=== PATIENT | female | born 1955 | race Caucasian/White ===

== ENCOUNTER → 2018-09-03 22:05 | Outpatient (CLI) | payer MEDICARE | END | disposition home or self-care (01) | LOC: D.MAMMO 07-13 08:00 | PROVIDERS: ATTEND Family Medicine | DX: N63.42 Unspecified lump in left breast, subareolar (principal) ==

== ENCOUNTER 2019-12-30 21:12 | Inpatient (IN) | payer MEDICARE ==
[~2019-12-30] VITALS: Ht 162.6 cm; Wt 53.1 kg
[2019-12-30] MEDS ORDERED: LIPITOR40 MG PO (21:31)
[2019-12-30] MEDS ORDERED: NORVASC10 MG PO (21:31)
[2019-12-30] MEDS ORDERED: TESSALON PERLE100 MG PO (21:31)
[2019-12-30] MEDS ORDERED: BAYER CHEWABLE81 MG PO (21:31)
[2019-12-30] MEDS ORDERED: HUMALOG 30100 UNITS/ SC (21:32)
[2019-12-30] MEDS ORDERED: PLAVIX75 MG PO (21:32)
[2019-12-30] MEDS ORDERED: GABAPENTIN100 MG PO (21:32)
[2019-12-30] MEDS ORDERED: ZOLOFT50 MG PO (21:33)
[2019-12-30] MEDS ORDERED: SINGULAIR10 MG PO (21:33)
[2019-12-30] MEDS ORDERED: LOPRESSOR25 MG PO (21:33)
[2019-12-30] MEDS ORDERED: ISOSORBIDE MONO60 M1 PO (21:33)
[2019-12-30] MEDS ORDERED: ULTRAM50 MG PO (21:34)
[2019-12-30 22:05] LABS: INR 1.07 (0.85-1.17); PROTIME 13.8 SECONDS (11.6-15.0)
[2019-12-30 22:06] LABS: APTT 57.5 SECONDS (22.8-39.4)
[2019-12-30 22:08] LABS: CALC OSMOLALITY 271 mosm/kg (275-300); CALCIUM 7.7 mg/dL (8.5-10.1); CARBON DIOXIDE 19.5 mmol/L (21.0-32.0); CREATININE - SERUM 1.3 mg/dL (0.6-1.3); GLUCOSE 211 mg/dL (74-106); SODIUM 131 mmol/L (136-145); UREA NITROGEN 20 mg/dL (7-18); eGFR NON AFRICAN AMERICAN 44 mL/min (90-120)
[2019-12-30 22:15] LABS: BASOPHILS 0.1 % (0-2); EOSINOPHILS 0 % (0-7); HEMATOCRIT 31.1 % (36.0-48.0); HEMOGLOBIN 10.4 g/dL (12-16); IMMATURE GRANULOCYTES 0.4 % (0-5); MCHC 33.4 g/dL (31.0-37.0); MCV 80.8 fL (80.0-100.0); MEAN PLATELET VOLUME 9.8 fL (7.4-10.4); MONOCYTES 10.6 % (2-11); NEUTROPHILS 75.9 % (40-80); PLATELET COUNT 212 10x3/uL (130-400); RBC 3.85 10x6/uL (4.00-5.40); RDW 14.8 % (11.5-14.5); WBC 11.3 10x3/uL (4.8-10.8)
[2019-12-30 22:25] LABS: ALBUMIN 2.3 g/dL (3.4-5.0); ALKALINE PHOSPHATASE 104 U/L (30-120); ALT (SGPT) 12 U/L (10-68); BILIRUBIN - TOTAL 0.79 mg/dL (0.2-1.3); CKMB 0.5 U/L (0.0-3.6); CREATINE KINASE 78 UL (21-215); TROPONIN-I 0.049 ng/mL (0.000-0.060)
[2019-12-30 22:30] VITALS: BP 174/88
[2019-12-30 22:44] LABS: CHLORIDE - SERUM 98 mmol/L (98-107)
[2019-12-30 23:10] LABS: AMORPHOUS SEDIMENT >1+ /lpf (NONE SEEN); BILIRUBIN NEGATIVE (NEGATIVE); GLUCOSE 100 mg/dL (NEGATIVE); KETONE SMALL mg/dL (NEGATIVE); NITRITE NEGATIVE (NEGATIVE); UROBILINOGEN NORMAL (NORMAL); WHITE CELLS - URINE 0-5 /hpf (NEGATIVE)
[2019-12-31] MEDS ORDERED: LEVEMIR IN100 UNITS/ SC (02:01)
[2019-12-31] MEDS ORDERED: NITROSTAT0.4 MG SL (02:10)
[2019-12-31] MEDS ORDERED: PROTONIX40 MG PO (02:11)
[2019-12-31] MEDS ORDERED: ZOLOFT100 MG PO (02:14)
[2019-12-31] MEDS ORDERED: CEFUROXIME250 MG PO (02:17)
[2019-12-31] MEDS ORDERED: FLUTICASONE INH (02:20)
[2019-12-31 03:33] VITALS: BP 174/87; BMI 20.1
[2019-12-31 07:26] LABS: BASOPHILS 0.1 % (0-2); EOSINOPHILS 0.1 % (0-7); HEMATOCRIT 32.7 % (36.0-48.0); HEMOGLOBIN 10.8 g/dL (12-16); IMMATURE GRANULOCYTES 0.4 % (0-5); LYMPHOCYTES 9.2 % (15-50); MCH 26.7 pg (26.0-34.0); MCV 80.7 fL (80.0-100.0); MEAN PLATELET VOLUME 10.8 fL (7.4-10.4); MONOCYTES 10.1 % (2-11); NEUTROPHILS 80.1 % (40-80); PLATELET COUNT 223 10x3/uL (130-400); RBC 4.05 10x6/uL (4.00-5.40); RDW 14.9 % (11.5-14.5); WBC 10.7 10x3/uL (4.8-10.8)
[2019-12-31 08:32] LABS: ANION GAP 17.7 mmol/L (8-16); CALCIUM 7.7 mg/dL (8.5-10.1); CARBON DIOXIDE 20.7 mmol/L (21.0-32.0); CREATININE - SERUM 1.1 mg/dL (0.6-1.3); POTASSIUM - SERUM 4.4 mmol/L (3.5-5.1)
[2019-12-31 10:10] VITALS: BP 176/84
--- NOTE | 2019-12-31 10:30 | NUR ---
PT ALERT AND ORIENTED UPON ENTERING, ADMINISTERED MEDICATION, NO DIFFICULTIES. FAMILY AT [facility]. GAVE 8 UNITS INSULIN PER SLIDING SCALE FOR SUGAR OF 203. ASSESSMENT PERFORMED. NOTED THAT PT IS VERY SOB EVEN WHEN SITTING IN BED. DENIES ANY NEEDS. BED IN LOWEST POSITION, BED RAILS X2, CALL LIGHT WITHIN REACH. WILL CONTINUE TO MONITOR.
[2019-12-31 13:25] VITALS: BP 139/76
--- NOTE | 2019-12-31 13:57 | NUR ---
I have reviewed this patient and I concur with the Shift Assessment completed by the Licensed Practical Nurse today this shift.
--- NOTE | 2019-12-31 14:50 | NUR ---
GAVE MEDICATION AND HUNG IV ABX, TOLERATING WELL. RESTING COMFORTABLY IN BED. PT STILL SEEMS TO BE SOB AT REST. DENIES ANY OTHER NEEDS. WILL CONTINUE TO MONITOR.
--- NOTE | 2019-12-31 16:20 | NUR ---
PT RESTING COMFORTABLY IN BED, AAO UPON ENTERING. NEW BAG OF FLUIDS STARTED. ASSESSED BLOOD SUGAR, NO INSULIN PER SLIDING SCALE FOR SUGAR OF 96. PROVIDED PT WITH ORANGE JUICE. DENIES ANY OTHER NEEDS. WILL CONTINUE TO MONITOR.
[2019-12-31 17:02] VITALS: BP 141/72
[2019-12-31 21:00] VITALS: BP 150/94
[2020-01-01 07:00] LABS: BASOPHILS 0 % (0-2); EOSINOPHILS 0.1 % (0-7); HEMATOCRIT 31.3 % (36.0-48.0); HEMOGLOBIN 10.2 g/dL (12-16); IMMATURE GRANULOCYTES 0.7 % (0-5); LYMPHOCYTES 11.8 % (15-50); MCH 26.1 pg (26.0-34.0); MCHC 32.6 g/dL (31.0-37.0); MCV 80.1 fL (80.0-100.0); MEAN PLATELET VOLUME 10.4 fL (7.4-10.4); MONOCYTES 10.9 % (2-11); NEUTROPHILS 76.5 % (40-80); PLATELET COUNT 252 10x3/uL (130-400); RBC 3.91 10x6/uL (4.00-5.40); RDW 15.2 % (11.5-14.5); WBC 9.1 10x3/uL (4.8-10.8)
[2020-01-01 07:15] VITALS: BP 150/81
[2020-01-01 07:15] LABS: ANION GAP 14.3 mmol/L (8-16); CREATININE - SERUM 1.2 mg/dL (0.6-1.3)
[2020-01-01 07:19] LABS: POTASSIUM - SERUM 3.3 mmol/L (3.5-5.1)
--- NOTE | 2020-01-01 08:02 | NUR ---
PT SITTING UP AT SIDE OF BED, EYES OPEN, ALERT AND ORIENTED WITH NO S/S OF DISTRESS AT THIS TIME. IV LOCATED TO RIGHT CURRENTLY RUNNING NS @ 75. DENIES CURRENT NEEDS, WILL CONT TO MONITOR.
--- NOTE | 2020-01-01 08:19 | HP ---
PATIENT: GI VILLEDA MEDICAL RECORD: [id number] ACCOUNT: [id number] LOCATION:D.[facility] [id number] : 55 ADMISSION DATE: 12/31/19 PCP: FRANKLYN GOMEZ HISTORY AND PHYSICAL EXAMINATION ADMITTING PHYSICIAN: Dr. Dequan Gomez REASON FOR ADMISSION: Right flank pain, cough and possible UTI. HISTORY OF PRESENT ILLNESS: The patient is a 64-year-old female who had been recently hospitalized at [facility] for potential pyelo UTI. Apparently renal ultrasound was negative and cultures returned negative, although she was treated with antibiotics. She went home with the rehab at [place] because she was deconditioned. States she was there about a week developing increasing cough and right lower back pain and concern for recurrent UTI. She had been somewhat confused and had fever as well. She rode back to the ER last night, given medication for fever, discharged to Dr. Gomez in the office the morning of admission, was placed on oral antibiotics, but became more uncomfortable and more confused and was brought to the ED. She denies vomiting, headache, diarrhea or abdominal pain. PAST MEDICAL HISTORY: Asthma, atrial fibrillation postoperative, CAD, depression, type 2 diabetes mellitus, essential hypertension, hyperlipidemia, mild pulmonary hypertension, sick sinus syndrome. PAST SURGICAL HISTORY: She had coronary bypass grafting, 09/02/2010, LAD and RCA. Has had multiple heart catheterizations, PTCA in 2012 to LAD, negative stress test in 2012, EGD with biopsy in 2014, pacemaker placement, hysterectomy. ALLERGIES: LISINOPRIL AND SULFA. FAMILY HISTORY: Father and mother both with heart disease. Mother had diabetes. SOCIAL HISTORY: She denies smoking. REVIEW OF SYSTEMS: CONSTITUTIONAL: She has been fatigued for the last couple of weeks. She denies headache. She has had low-grade fever. HEENT: No recent sinus congestion or sore throat. She has some hearing difficulty and she wears glasses to read. RESPIRATORY: Dry cough for the last 2 days with flank pain. She had no sputum production or hemoptysis and is not short of breath. CARDIAC: No palpitations, PND, orthopnea, claudication or edema recently. GASTROINTESTINAL: No nausea, vomiting, change in stools or blood per rectum. GENITOURINARY: No dysuria. GYNECOLOGIC: No recent vaginal bleeding. ENDOCRINE: Denies polyuria, polydipsia, heat or cold intolerance. NEUROLOGIC: No history of stroke, TIA, or vascular headaches. INTEGUMENT: No rash or itching. PSYCHIATRIC: Denies depressed mood. PHYSICAL EXAMINATION: VITAL SIGNS: Temperature 101.0 Fahrenheit, heart rate 108 and regular, respirations are 20, blood pressure 133/73 with a sat of 99% on room air. HISTORY AND PHYSICAL [id number] GI VILLEDA GENERAL: The patient is thin, but oriented, in no acute distress. HEENT: Normocephalic. Eyes are clear with senile cataracts. Oropharynx shows poor dentition. Mucous membranes are dry. NECK: Supple, without bruits. CHEST: He has fine crackles in the left base. No retractions. No wheezes. HEART: Tachycardic without murmur. ABDOMEN: Soft, without organomegaly. She has some tenderness in the superior right flank without rebound. GENITOURINARY: Deferred. EXTREMITIES: No CC&E. NEUROLOGICAL: She is oriented to person and place, but not time. Cranial nerves are intact. Gait was not tested. No gross motor or sensory deficits are appreciated. LABORATORY DATA: Her sodium was 134, potassium is 4.0. BUN and creatinine were 20 and 1.3, glucose was 211. Lactic acid 1.1. Liver functions were normal. Coags were normal. White count 11.3 with left shift. H&H is 10.4 and 31.1 respectively. Urinalysis shows small ketones, 2+ protein, 5-10 red cells per high power field, 0-5 white cells per high power field, leukocyte negative. DIAGNOSTIC STUDIES: Chest x-ray showed questionable infiltrate in the right middle lobe. CT of the chest showed consolidation of right lower lobe as well as patchy consolidation right middle lobe, right pleural effusion and mediastinal adenopathy consistent with pneumonia. CT abdomen and pelvis showed some air-fluid levels, possible enteritis. No bowel obstruction or obstructive uropathy appreciated. ASSESSMENT: Right middle and lower lobe hospital acquired, recent urinary tract infection, diabetes mellitus, metabolic encephalopathy, history of coronary artery disease, hypertension, sick sinus syndrome. PLAN: Panculture, DuoNeb updrafts. Continue home medications. Further workup pending clinical course. TRANSINT:[id number] Voice Confirmation ID: [id number] DOCUMENT ID: [id number] MAHESH GARCIA MD at 0819 CC: [id number] DICTATION DATE: 12/31/19835 PULL TAB DEALER: 12/31/19 09 ADM IN [place] [id number] [place] [id number]
[2020-01-01 12:04] VITALS: BP 122/75
[2020-01-01 15:48] VITALS: BP 131/78
[2020-01-01 20:00] VITALS: BP 148/84
[2020-01-02] VITALS: BP 134/69
--- NOTE | 2020-01-02 07:15 | NUR ---
RECEIVE BEDSIDE SHIFT REPORT. RESTING IN BED WATCHING TV. DENIES ANY NEEDS AT THIS TIME. WILL CONTINUE PLAN OF CARE AND SAFETY PRECAUTIONS.
[2020-01-02 07:42] LABS: ANION GAP 12.4 mmol/L (8-16); CALCIUM 7.7 mg/dL (8.5-10.1); POTASSIUM - SERUM 3.4 mmol/L (3.5-5.1)
[2020-01-02 07:45] LABS: BASOPHILS 0.1 % (0-2); EOSINOPHILS 1.1 % (0-7); HEMATOCRIT 32.9 % (36.0-48.0); HEMOGLOBIN 10.9 g/dL (12-16); IMMATURE GRANULOCYTES 0.7 % (0-5); MCH 26.5 pg (26.0-34.0); MCHC 33.1 g/dL (31.0-37.0); MCV 79.9 fL (80.0-100.0); MEAN PLATELET VOLUME 9.7 fL (7.4-10.4); MONOCYTES 10.6 % (2-11); NEUTROPHILS 71.5 % (40-80); RBC 4.12 10x6/uL (4.00-5.40); RDW 15.3 % (11.5-14.5); WBC 8.1 10x3/uL (4.8-10.8)
[2020-01-02 07:57] LABS: PLATELET COUNT 342 10x3/uL (130-400)
[2020-01-02 08:37] VITALS: BP 153/75
[2020-01-02 12:00] VITALS: BP 141/84
[2020-01-02 14:27] VITALS: Ht 162.6 cm; Wt 53.1 kg
[2020-01-02 16:00] VITALS: BP 129/69
[2020-01-02 20:55] VITALS: BP 142/72
[2020-01-03 01:48] VITALS: BP 146/84
--- NOTE | 2020-01-03 03:34 | NUR ---
I have reviewed this patient and I concur with the Shift Assessment completed by the Licensed Practical Nurse today this shift.
[2020-01-03 04:30] VITALS: BP 133/70
--- NOTE | 2020-01-03 07:06 | NUR ---
WALKING ROUNDS COMPLETE, PT LAYING IN BED WATCHING TV, IV INFUSING WITHOUT DIFFICUTLY, SITE CLEAR, O2 IN USE PER NC, RESP EVEN AND UNLABORED, PT DENIES PAIN OR NEEDS AT THIS TIME, SR UP X2, CALL LIGHT IN REACH, BED LOW AND LOCKED, WILL CONTINUE TO MONITOR
[2020-01-03 08:09] VITALS: BP 140/72
--- NOTE | 2020-01-03 11:15 | NUR ---
GAVE PT SCHEDULED MEDS, BLOOD SUGAR 112, NO COVERAGE NEEDED, PT DENIES PAIN OR NEEDS, FAMILY MEMBER AT BEDSIDE, WILL MONITOR
[2020-01-03 12:54] VITALS: BP 129/75
--- NOTE | 2020-01-03 16:32 | NUR ---
BLOOD GLUCOSE 179, 4 UNIT INSULIN GIVEN , NO OTHER NEEDS VOICED, WILL MONITOR
[2020-01-03 17:24] VITALS: BP 139/91
[2020-01-03 20:00] VITALS: BP 142/82
[2020-01-04] VITALS: BP 157/83
[2020-01-04 04:00] VITALS: BP 146/69
[2020-01-04 06:16] LABS: BASOPHILS 0.1 % (0-2); EOSINOPHILS 3.5 % (0-7); HEMATOCRIT 31.4 % (36.0-48.0); HEMOGLOBIN 10.3 g/dL (12-16); IMMATURE GRANULOCYTES 1.2 % (0-5); LYMPHOCYTES 20.3 % (15-50); MCH 26.2 pg (26.0-34.0); MCHC 32.8 g/dL (31.0-37.0); MCV 79.9 fL (80.0-100.0); MEAN PLATELET VOLUME 9.5 fL (7.4-10.4); NEUTROPHILS 64.9 % (40-80); RBC 3.93 10x6/uL (4.00-5.40); RDW 15.7 % (11.5-14.5); WBC 7.8 10x3/uL (4.8-10.8)
[2020-01-04 06:45] LABS: PLATELET COUNT 449 10x3/uL (130-400)
[2020-01-04 07:04] LABS: ANION GAP 12.1 mmol/L (8-16); CALCIUM 7.9 mg/dL (8.5-10.1); CARBON DIOXIDE 20.9 mmol/L (21.0-32.0)
[2020-01-04 08:50] VITALS: BP 157/80
--- NOTE | 2020-01-04 08:52 | NUR ---
PT ALERT AND ORIENTED X4 UPON ENTERING, UP RIGHT AT BEDSIDE EATING BREAKFAST. ADMINISTERED MORNING MEDICATION, NO DIFFICULTIES. HUNG IV ABX, TOLERATING WELL. DENIES ANY NEEDS. WILL CONTINUE TO MONITOR.
--- NOTE | 2020-01-04 11:12 | NUR ---
I have reviewed this patient and I concur with the Shift Assessment completed by the Licensed Practical Nurse today this shift.
--- NOTE | 2020-01-04 11:47 | NUR ---
ADMINISTERED 4 UNITS INSULIN PER SLIDING SCALE, SUGAR 176. RESTING COMFORTABLY. DENIES ANY NEEDS. WILL CONTINUE TO MONITOR.
[2020-01-04 13:31] VITALS: BP 168/84
--- NOTE | 2020-01-04 14:53 | NUR ---
PT RESTING COMFORTABLY IN BED, MEDICATIONS GIVEN. DENIES ANY NEEDS. WILL CONTINUE TO MONITOR.
[2020-01-04 16:37] VITALS: BP 159/86
--- NOTE | 2020-01-04 16:38 | NUR ---
GAVE 4 UNITS INSULIN PER SLIDING SCALE FOR SUGAR OF 179. DENIES ANY NEEDS. WILL CONTINUE TO MONITOR.
[2020-01-04 20:00] VITALS: BP 163/80
[2020-01-05] VITALS: BP 165/81
[2020-01-05 04:00] VITALS: BP 160/77
[2020-01-05 05:28] LABS: BASOPHILS 0.1 % (0-2); HEMATOCRIT 31.8 % (36.0-48.0); HEMOGLOBIN 10.5 g/dL (12-16); IMMATURE GRANULOCYTES 1.5 % (0-5); LYMPHOCYTES 20.3 % (15-50); MCH 26.4 pg (26.0-34.0); MCV 79.9 fL (80.0-100.0); MONOCYTES 7.6 % (2-11); NEUTROPHILS 67.5 % (40-80); PLATELET COUNT 484 10x3/uL (130-400); RBC 3.98 10x6/uL (4.00-5.40); RDW 15.8 % (11.5-14.5); WBC 9.6 10x3/uL (4.8-10.8)
[2020-01-05 05:56] LABS: ANION GAP 10.4 mmol/L (8-16); CALCIUM 8.1 mg/dL (8.5-10.1); POTASSIUM - SERUM 3.4 mmol/L (3.5-5.1)
--- NOTE | 2020-01-05 06:44 | NUR ---
Pt resting in bed and electrolytes replaced per protocol. Pt denies any needs and drinking orange juice due to BS of 66. Pt is not symptomatic and denies any needs at this time. Pt has slept most of the night and watched TV and dozed off. Call light in reach, bed in low position.
[2020-01-05 08:00] VITALS: BP 165/86
[2020-01-05 12:00] VITALS: BP 151/79
--- NOTE | 2020-01-05 13:59 | NUR ---
Nutrition follow-up: Diet: Consistent CHO PO intake ~50% of meals Labs reviewed Pt having some low glucose readings Wt: 116# +BM Will encourage increased po intake RDN following.
[2020-01-05 15:26] VITALS: BP 154/48
[2020-01-05 20:00] VITALS: BP 142/73
--- NOTE | 2020-01-05 20:00 | NUR ---
PATIENT RESTING IN BED WATCHING TV. NO S/S OF ACUTE DISTRESS. NO C/O AT THIS TIME. PATIENT IS ON 2L OF O2. PATIENT HAS RIGHT FOREARM, NORMAL SALINE @ 50 ML/HR. IV IS PATENT WITHOUT REDNESS, SWELLING, OR TENDERNESS. PATIENT HAS TELEMETRY ON. PATIENT IS UP AD MELISSA TO THE BATHROOM. CALL LIGHT WITHIN REACH. WILL CONTINUE TO MONITOR.
[2020-01-06] VITALS: BP 164/82
[2020-01-06 04:00] VITALS: BP 154/84
--- NOTE | 2020-01-06 04:05 | NUR ---
I have reviewed this patient and I concur with the Shift Assessment completed by the Licensed Practical Nurse today this shift.
[2020-01-06 06:57] LABS: ANION GAP 11.7 mmol/L (8-16); BASOPHILS 0.3 % (0-2); CARBON DIOXIDE 22.2 mmol/L (21.0-32.0); EOSINOPHILS 6.1 % (0-7); HEMATOCRIT 31.4 % (36.0-48.0); HEMOGLOBIN 10.3 g/dL (12-16); IMMATURE GRANULOCYTES 1.8 % (0-5); LYMPHOCYTES 21.3 % (15-50); MCH 26.3 pg (26.0-34.0); MCHC 32.8 g/dL (31.0-37.0); MCV 80.3 fL (80.0-100.0); MEAN PLATELET VOLUME 8.9 fL (7.4-10.4); MONOCYTES 9.1 % (2-11); NEUTROPHILS 61.4 % (40-80); PLATELET COUNT 496 10x3/uL (130-400); POTASSIUM - SERUM 3.9 mmol/L (3.5-5.1); RBC 3.91 10x6/uL (4.00-5.40); WBC 7.6 10x3/uL (4.8-10.8)
[2020-01-06 08:08] VITALS: BP 165/86
[2020-01-06] MEDS ORDERED: VIBRAMYCIN 100100 MG PO (12:46)
[2020-01-06 13:17] VITALS: BP 160/85
--- NOTE | 2020-01-06 14:04 | MORECARE ---
CASE MANAGEMENT DISCHARGE SUMMARY PATIENT: GI VILLEDA UNIT: [id number] ADM DATE: 12/31/19 AGE: 64 : 55 SEX: F ROOM/BED: D.2236 AUTHOR: COLIN,DOC PHYSICIAN: REFERRING PHYSICIAN: FRANKLYN GOMEZ MD DATE OF SERVICE: 01/06/20 Discharge Plan Patient Name: GI VILLEDA Facility: [facility]:[place] : 1955 Planned Disposition: Home or Self Care Anticipated Discharge Date: Discharge Date: Expected LOS: Initial Reviewer: [email or web address] Initial Review Date: 01/06/2020 Generated: 01/06/20 3:03 pm Comments DCP- Discharge Planning Updated by [email or web address]: Carolyn Lentz on 01/06/20 12:[address] Patient Name: GI VILLEDA Admission Status: ER Accout number: [id number] Admission Date: 12-31-2019 : 1955 Admission Diagnosis:ALTERED MENTAL STATUS, UNSPECIFIED Attending: FRANKLYN GOMEZ Current LOS: 6 Anticipated DC Date: Planned Disposition: Home or Self Care Primary Insurance: [facility] MEDICARE SOLUTIONS Discharge Planning Comments: CM met with patient at bedside after explaining CM role and obtaining verbal consent. CM discussed availability / needs of home health, REHAB and medical equipment. PATIENT DOES NOT WANT HH. STATES DAUGHTER IS THERE WITH HER. DECLINATION OF SERVICES SIGNED BY PATIENT. IMM EXPLAINED, SIGNED AND COPY GIVEN TO PATIENT. STATES HER DAUGHTER WILL ORGAN TUNER TODAY. CM TO FOLLOW AND ASSIST NEEDED. Pure Pak Machine Operator: Carolyn Lentz DCPIA - Discharge Planning Initial Assessment Updated by [email or web address]: Carolyn Lentz on 01/06/20 1:55 pm * Is the patient Alert and Oriented? Yes * PCP JASON * [facility] * Preadmission Environment Home with Family * ADLs Independent * Equipment None * Community resources currently utilized None * Additional services required to return to the preadmission environment? No * Can the patient safely return to the preadmission environment? Yes * Has this patient been hospitalized within the prior 30 days at any hospital? Yes Coverage Notice Reviewer: [id number] - Carolyn Lentz Notice Issued Date-Time: 01/06/2020 13:57 Notice Type: IM Discharge Notice Notice Delivered To: Relationship to Patient: Airplane Inspector Name: Delivery Method: - Lacy Days: Prior Verbal Notification: Recipient Understood Notice: Recipient Signature: Med Rec Note Co-signed by Attending: Coverage Notice Comment: Reviewer: [email or web address] Dima Lentz Notice Issued Date-Time: 01/06/2020 13:57 Notice Type: Patient Choice Letter Notice Delivered To: Patient Relationship to Patient: Airplane Inspector Name: Delivery Method: - Lacy Days: Prior Verbal Notification: Recipient Understood Notice: Recipient Signature: Med Rec Note Co-signed by Attending: Coverage Notice Comment: DECLINED HH Patient Name: GI VILLEDA Page [id number] at 1404 All edits/amendments must be made on the electronic document DICTATION DATE: 01/06/201402 [facility]: ANDREY 01/06/201402 RPT#: [id number] DC DATE: STATUS: ADM IN [facility] [address] [place] [address] END OF REPORT
--- NOTE | 2020-01-09 09:25 | MORECARE ---
CASE MANAGEMENT DISCHARGE SUMMARY PATIENT: GI VILLEDA UNIT: [id number] ADM DATE: 12/31/19 AGE: 64 : 55 SEX: F ROOM/BED: D.2236 AUTHOR: COLIN,DOC PHYSICIAN: REFERRING PHYSICIAN: FRANKLYN GOMEZ MD DATE OF SERVICE: 01/09/20 Discharge Plan Patient Name: GI VILLEDA Facility: [facility]:[place] : 1955 Planned Disposition: Home or Self Care Anticipated Discharge Date: Discharge Date: 01/06/2020 Expected LOS: Initial Reviewer: [email or web address] Initial Review Date: 01/06/2020 Generated: 01/09/20 10:24 am Comments DCP- Discharge Planning Updated by [email or web address]: Carolyn Lentz on 01/06/20 12:[address] Patient Name: GI VILLEDA Admission Status: ER Accout number: [id number] Admission Date: 12-31-2019 : 1955 Admission Diagnosis:ALTERED MENTAL STATUS, UNSPECIFIED Attending: FRANKLYN GOMEZ Current LOS: 6 Anticipated DC Date: Planned Disposition: Home or Self Care Primary Insurance: [facility] MEDICARE SOLUTIONS Discharge Planning Comments: CM met with patient at bedside after explaining CM role and obtaining verbal consent. CM discussed availability / needs of home health, REHAB and medical equipment. PATIENT DOES NOT WANT HH. STATES DAUGHTER IS THERE WITH HER. DECLINATION OF SERVICES SIGNED BY PATIENT. IMM EXPLAINED, SIGNED AND COPY GIVEN TO PATIENT. STATES HER DAUGHTER WILL BUSINESS ASSOCIATE TODAY. CM TO FOLLOW AND ASSIST NEEDED. Electric Trucker: Carolyn Lentz DCPIA - Discharge Planning Initial Assessment Updated by [id number]: Carolyn Lentz on 01/06/20 1:55 pm * Is the patient Alert and Oriented? Yes * PCP JASON * [facility] * Preadmission Environment Home with Family * ADLs Independent * Equipment None * Community resources currently utilized None * Additional services required to return to the preadmission environment? No * Can the patient safely return to the preadmission environment? Yes * Has this patient been hospitalized within the prior 30 days at any hospital? Yes Coverage Notice Reviewer: [id number] - Carolyn Lentz Notice Issued Date-Time: 01/06/2020 13:57 Notice Type: IM Discharge Notice Notice Delivered To: Relationship to Patient: Enrolled Agent Name: Delivery Method: - Lacy Days: Prior Verbal Notification: Recipient Understood Notice: Recipient Signature: Med Rec Note Co-signed by Attending: Coverage Notice Comment: Reviewer: [email or web address] Dima Lentz Notice Issued Date-Time: 01/06/2020 13:57 Notice Type: Patient Choice Letter Notice Delivered To: Patient Relationship to Patient: Enrolled Agent Name: Delivery Method: - Lacy Days: Prior Verbal Notification: Recipient Understood Notice: Recipient Signature: Med Rec Note Co-signed by Attending: Coverage Notice Comment: DECLINED HH Last DP export: 01/06/20 1:04 p Patient Name: GI VILLEDA Page [id number] at 0925 All edits/amendments must be made on the electronic document DICTATION DATE: 01/09/20923 CHIEF MECHANICAL OFFICER: ANDREY 01/09/20923 RPT#: [id number] DC DATE:01/06/20 STATUS: DIS IN [facility] [address] [place] [address] END OF REPORT
== END 2020-01-06 14:57 | disposition home or self-care (01) | DRG 193 ==
LOC: D.ER 21:12 → D.MS 12-31
PROVIDERS: Family Medicine; ADMIT Family Medicine; ATTEND Family Medicine
DX: J18.9 Pneumonia, unspecified organism (principal); G93.41 Metabolic encephalopathy; I10 Essential (primary) hypertension; I25.10 Atherosclerotic heart disease of native coronary artery without angina pectoris; E11.65 Type 2 diabetes mellitus with hyperglycemia; I48.91 Unspecified atrial fibrillation; E78.5 Hyperlipidemia, unspecified; F32.9 Major depressive disorder, single episode, unspecified; Z95.0 Presence of cardiac pacemaker

== ENCOUNTER → 2020-09-18 10:25 | Outpatient (CLI) | payer MEDICARE ==
[~2020-09-18 10:25] MED LIST: BAYER CHEWABLE81 MG PO; CEFUROXIME250 MG PO; FLUTICASONE INH; GABAPENTIN100 MG PO; HUMALOG 30100 UNITS/ SC; ISOSORBIDE MONO60 M1 PO; LEVEMIR IN100 UNITS/ SC; LIPITOR40 MG PO; LOPRESSOR25 MG PO; NITROSTAT0.4 MG SL; NORVASC10 MG PO; PLAVIX75 MG PO; PROTONIX40 MG PO; SINGULAIR10 MG PO; TESSALON PERLE100 MG PO; ULTRAM50 MG PO; VIBRAMYCIN 100100 MG PO; ZOLOFT100 MG PO; ZOLOFT50 MG PO
== END | disposition home or self-care (01) ==
LOC: D.CT 10:25
PROVIDERS: ATTEND Family Medicine
DX: E11.40 Type 2 diabetes mellitus with diabetic neuropathy, unspecified (principal); E11.51 Type 2 diabetes mellitus with diabetic peripheral angiopathy without gangrene